=== PATIENT | female | born 1970 | race Native Hawaiian/Other Pacific Islander ===

== ENCOUNTER 2018-05-13 01:08 | Emergency (ER) | payer SELFPAY ==
[2018-05-13 01:28] VITALS: BMI 35.4
[2018-05-13 01:32] VITALS: BP 125/65; PULSE 90; RESP 20; TEMP 98.7; O2SAT 96
--- NOTE | 2018-05-13 02:05 | C.PDOC ---
History Of Present Illness 47 y/o female pt presents to the ER c/o cough, chest congestion, nasal congestion and sinus pressure x3 days. Pt reports she went to urgent care where she received tamiflu, tessalon and zyrtec with no relief. Pt has no fever, vomiting, diarrhea, SOB, Chest pain or other associated sx or complaints at this time. Time Seen by Provider: 05/13/18 01:35 Chief Complaint (Nursing): Flu-like Symptoms History Per: Patient History/Exam Limitations: no limitations Onset/Duration Of Symptoms: Days (x3) Current Symptoms Are (Timing): Still Present Past Medical History Reviewed: Historical Data, Nursing Documentation, Vital Signs Vital Signs: Last Vital Signs Temp 98.7 F 05/13/18 01:28 Pulse 90 05/13/18 01:28 Resp 20 05/13/18 01:28 BP 125/65 05/13/18 01:28 Pulse Ox 96 05/13/18 01:28 Family History: States: No Known Family Hx - Social History Hx Alcohol Use: No Hx Substance Use: No - Immunization History Hx Tetanus Toxoid Vaccination: No Hx Influenza Vaccination: No Hx Pneumococcal Vaccination: No Review Of Systems Except As Marked, All Systems Reviewed And Found Negative. ENT: Positive for: Nose Congestion, Other (sinus pressure ) Cardiovascular: Positive for: Other (chest congestion ) Respiratory: Positive for: Cough Physical Exam - Physical Exam Appears: Non-toxic, No Acute Distress Skin: Warm, Dry, No Rash Head: Atraumatic, Normacephalic, No Tenderness, No Swelling Eye(s): bilateral: Normal Inspection, PERRL, EOMI Nose: Discharge, Other (nasal turbinates; frontal sinus tenderness; no parasinus ) Oral Mucosa: Moist Throat: Normal, No Erythema, No Exudate Chest: Symmetrical, No Deformity, No Tenderness Cardiovascular: Rhythm Regular Respiratory: Normal Breath Sounds Neurological/Psych: Oriented x3, Normal Speech ED Course And Treatment O2 Sat by Pulse Oximetry: 96 (RA) Pulse Ox Interpretation: Normal Progress Note: Plans: -- benadryl. -- ibuprofen. Pt remains stable VSS, will start z scotty and follow up Disposition Counseled Patient/Family Regarding: Diagnosis, Need For Followup - Disposition Referrals: [facility] [Outside] Disposition: HOME/ ROUTINE Disposition Time: 02:02 Condition: STABLE Additional Instructions: Increase Fluids Bed rest Take all meds prescribed Follow up with PMD Return to ER if worse Prescriptions: Azithromycin [Zithromax] 250 mg PO DAILY #6 tab Cetirizine HCl [Zyrtec] 10 mg PO DAILY #14 capsule Ibuprofen [Motrin] 600 mg PO Q6H #20 tab Instructions: Acute Bronchitis, Adult (DC) Forms: [facility] (Spanish) - Clinical Impression Clinical Impression: Bronchitis, Sinusitis - PA / MACARONI PRESS OPERATOR / Resident Statement / has reviewed & agrees with the documentation as recorded. - Scribe Statement The provider has reviewed the documentation as recorded by the Dami De La Cruz Do All medical record entries made by the Dami were at my direction and personally dictated by me. I have reviewed the chart and agree that the record accurately reflects my personal performance of the history, physical exam, medical decision making, and the department course for this patient. I have also personally directed, reviewed, and agree with the discharge instructions and disposition.
== END 2018-05-13 02:14 | disposition home or self-care (01) ==
LOC: MERGE 01:08 → C.ER 01:08
DX: J40 Bronchitis, not specified as acute or chronic (principal); J32.9 Chronic sinusitis, unspecified